=== PATIENT | male | born 1950 | race Caucasian/White ===

== ENCOUNTER 2018-11-11 00:17 | Inpatient (IN) | payer MEDICARE ==
[~2018-11-11] VITALS: Ht 182.9 cm; Wt 94.0 kg
[2018-11-11 00:46] LABS: BASOPHILS ABSOLUTE AUTO 0.08 K/mm3 (0.00-0.23); BASOPHILS PERCENT AUTO 1 % (0-2); EOSINOPHILS ABSOLUTE AUTO 0.11 K/mm3 (0.00-0.68); EOSINOPHILS PERCENT AUTO 1 % (0-6); Hemoglobin 14.7 g/dL (13.5-17.5); IMMATURE GRAN ABSOLUTE AUTO 0.14 K/mm3 (0.00-0.10); IMMATURE GRAN PERCENT AUTO 1 % (0-1); LYMPHOCYTES ABSOLUTE AUTO 4.94 K/mm3 (0.84-5.20); LYMPHOCYTES PERCENT AUTO 44 % (21-46); MONOCYTES ABSOLUTE AUTO 0.69 K/mm3 (0.16-1.47); MONOCYTES PERCENT AUTO 6 % (4-13); Mean Corpuscular Volume 97 fL (80-100); Mean Platelet Volume 10.4 fL (9.1-12.4); NEUTROPHILS ABSOLUTE AUTO 5.27 K/mm3 (1.96-9.15); NEUTROPHILS PERCENT AUTO 47 % (41-73); Platelet Count 368 K/mm3 (150-400); RDW Coefficient Variation 14.6 % (11.7-14.2); RDW Standard Deviation 52.2 fL (35.1-46.3); Red Blood Cell Count 4.74 M/mm3 (4.30-5.90); White Blood Cell Count 11.23 K/mm3 (4.00-11.30)
[2018-11-11 01:05] LABS: Alanine Aminotransfer (ALT/SGP 11 U/L (12-78); Albumin, Blood 3.5 g/dL (3.4-5.0); Albumin/Globulin Ratio 0.9 (0.8-1.8); Alk Phos 91 U/L (50-136); Anion Gap 10 mmol/L (6-16); Aspartate Aminotrans (AST/SGOT 26 U/L (12-37); Bilirubin, Total 0.3 mg/dL (0.1-1.0); Blood Urea Nitrogen 28 mg/dL (8-24); Bun/Creatinine Ratio 19.7 (12.0-20.0); CO2, Blood 25 mmol/L (21-32); Calcium, Blood 8.6 mg/dL (8.5-10.1); Chloride, Blood 107 mmol/L (98-108); Creatinine, Blood 1.42 mg/dL (0.60-1.20); Globulin, Blood 3.7 g/dL (2.2-4.0); Glomerular Filtration Rate 52 (60-); Glucose, Blood 161 mg/dL (70-99); Potassium, Blood 4.3 mmol/L (3.5-5.5); Sodium, Blood 142 mmol/L (136-145); Total Protein, Blood 7.2 g/dL (6.4-8.2); Troponin I <0.015 ng/mL (0.000-0.040)
[2018-11-11 01:20] LABS: Calcium, Ionized (POC) 1.05 mmol/L (1.10-1.46); Chloride (POC) 102 mmol/L (98-108); Creatinine (POC) 1.4 mg/dL (0.8-1.3); Glucose (ISTAT POC) 193 mg/dL (70-99); Hemoglobin (POC) 15.3 g/dL (13.5-17.5); Potassium (POC) 6.4 mmol/L (3.5-5.5); Sodium (POC) 138 mmol/L (135-148); Total CO2 (POC) 25 mmol/L (21-32)
[2018-11-11] MEDS ORDERED: ALBU90OI INH (02:00)
[2018-11-11] MEDS ORDERED: Amiodarone HCl200 MG PO (02:00)
[2018-11-11] MEDS ORDERED: BUDE6HFA INH (02:01)
[2018-11-11] MEDS ORDERED: ASPI81CH PO (02:01)
[2018-11-11] MEDS ORDERED: CARB150 (02:02)
[2018-11-11] MEDS ORDERED: CIPDEXSU BOTHEARS (02:03)
[2018-11-11] MEDS ORDERED: DULO60 PO (02:03)
[2018-11-11] MEDS ORDERED: ESCI10 PO (02:04)
[2018-11-11] MEDS ORDERED: Advair Hfa 230-12 GM (02:04)
[2018-11-11] MEDS ORDERED: FLUC100 PO (02:04)
[2018-11-11] MEDS ORDERED: FURO20 PO (02:30)
[2018-11-11] MEDS ORDERED: ISOMON20 PO (02:31)
[2018-11-11] MEDS ORDERED: Levothyroxine200 MCG (02:32)
[2018-11-11] MEDS ORDERED: METO100ER PO (02:33)
[2018-11-11] MEDS ORDERED: LOSA50 PO (02:33)
[2018-11-11] MEDS ORDERED: PREG100 PO (02:34)
[2018-11-11] MEDS ORDERED: ENTRESTO 24 MG1 EACH PO (02:34)
[2018-11-11] MEDS ORDERED: ROSU10TA PO (02:34)
[2018-11-11] MEDS ORDERED: WARF5 PO (02:35)
[2018-11-11] MEDS ORDERED: TIOT18 INH (02:35)
[2018-11-11] MEDS ORDERED: SPIR25 PO (02:35)
[2018-11-11 04:17] LABS: International Normalized Ratio 2.81; Prothrombin Time Results 27.1 Sec (9.7-11.5)
[2018-11-11 07:00] LABS: Anion Gap 7 mmol/L (6-16); Blood Urea Nitrogen 27 mg/dL (8-24); Bun/Creatinine Ratio 22.5 (12.0-20.0); CO2, Blood 25 mmol/L (21-32); Calcium, Blood 8.1 mg/dL (8.5-10.1); Chloride, Blood 111 mmol/L (98-108); Glomerular Filtration Rate >60 (60-); Glucose, Blood 125 mg/dL (70-99); Potassium, Blood 4.2 mmol/L (3.5-5.5); Sodium, Blood 143 mmol/L (136-145)
--- NOTE | 2018-11-11 07:42 | NUR ---
SHIFT SUMMARY PATIENT ADMITTED EARLIER THIS SHIFT FROM THE ER. PATIENT PLEASENT AND COOPERATIVE UPON ADMIT. PATIENT TRANSFERED OVER FROM [facility] TO THE BED VIA SLIDER SHEET. PATIENT DENIES ANY PAIN AND STATES THAT HE'S FEELING BETTER NOW. FLUIDS RUNNING PER ORDERS, ABX GIVEN PER ORDERS. PATIENT CURRENTLY APPEARS TO BE SLEEPING WELL. REPORT GIVEN TO ONCOMING RN.
--- NOTE | 2018-11-11 07:56 | NUR ---
NURSING PCU DAYSHIFT: Assumed care of pt at approx 0700. A/O, very pleasant, cooperative w/care. Denies any pain/discomfort at rest though does have soreness of b/l hands w/movement which pt states may r/t recent fall at home. Skin is fragile though intact w/no breakdown noted. Tele in place, SB/NSR w/first degree and BBB, no c/o CP/pressure, BP stable, no noted edema, artificial valve auscultated. L/S cta t/o, O2 sat upper 90's on RA, denies dyspnea, occ dry/MIXER WHIPPED TOPPING cough. Abd SNT, BT+, voiding w/o difficulty per pt. PIV x2, NS infusing at 150cc/hr. No s/s of acute distress at this time. Pt denies any current needs or questions regarding plan of care. Call light in reach and pt is able to use w/o difficulty. Awaiting rounding from PMD, cont to monitor for any changes.
[2018-11-11] MEDS ORDERED: Augmentin 875-1 EACH PO (08:31)
[2018-11-11] MEDS ORDERED: Carbidopa-Levo1 EAC4 PO (08:44)
[2018-11-11] MEDS ORDERED: SYNTHROID0.2 MG PO (08:59)
[2018-11-11] MEDS ORDERED: BENZ100A PO (09:13)
[2018-11-11] MEDS ORDERED: LIDOCAINE30 GM TOP (09:17)
[2018-11-11] MEDS ORDERED: FLONASE ALLERG9.9 ML (09:21)
[2018-11-11] MEDS ORDERED: NICO2 PO (09:39)
[2018-11-11] MEDS ORDERED: MEDIPLAST CORN1 EACH TOP (10:07)
[2018-11-11] MEDS ORDERED: NITR.4SL SL (10:15)
[2018-11-11] MEDS ORDERED: SPIRIVA RESPIMAT4 G1 INH (10:20)
--- NOTE | 2018-11-11 12:03 | NUR ---
ECHOCARDIOGRAM COMPLETED
--- NOTE | 2018-11-11 17:35 | NUR ---
NURSING PCU DAYSHIFT SUMMARY: No significant changes noted t/o the shift. VS remained stable, respiratory and cardiac status unchanged. Worked w/P.T. today, tolerated very well and was able to independently ambulate t/o the unit w/o difficulty. Pt denies any current needs at this time. Call light in reach and pt has been able to use w/o difficulty. Cont to monitor until rpt is given to NOC RN.
[2018-11-12 05:15] LABS: BASOPHILS ABSOLUTE AUTO 0.04 K/mm3 (0.00-0.23); BASOPHILS PERCENT AUTO 0 % (0-2); EOSINOPHILS ABSOLUTE AUTO 0.33 K/mm3 (0.00-0.68); EOSINOPHILS PERCENT AUTO 3 % (0-6); Hematocrit 36.4 % (37.0-53.0); Hemoglobin 11.8 g/dL (13.5-17.5); IMMATURE GRAN ABSOLUTE AUTO 0.06 K/mm3 (0.00-0.10); IMMATURE GRAN PERCENT AUTO 1 % (0-1); LYMPHOCYTES PERCENT AUTO 13 % (21-46); MONOCYTES ABSOLUTE AUTO 0.88 K/mm3 (0.16-1.47); MONOCYTES PERCENT AUTO 8 % (4-13); Mean Corpuscular HGB Conc 32.4 g/dL (31.5-36.5); Mean Corpuscular Volume 99 fL (80-100); Mean Platelet Volume 9.8 fL (9.1-12.4); NEUTROPHILS ABSOLUTE AUTO 8.71 K/mm3 (1.96-9.15); NEUTROPHILS PERCENT AUTO 76 % (41-73); Platelet Count 227 K/mm3 (150-400); RDW Coefficient Variation 14.7 % (11.7-14.2); RDW Standard Deviation 53.8 fL (35.1-46.3); Red Blood Cell Count 3.69 M/mm3 (4.30-5.90); White Blood Cell Count 11.52 K/mm3 (4.00-11.30)
[2018-11-12 05:36] LABS: Prothrombin Time Results 49.2 Sec (9.7-11.5)
[2018-11-12 05:39] LABS: Anion Gap 6 mmol/L (6-16); Blood Urea Nitrogen 17 mg/dL (8-24); Bun/Creatinine Ratio 14.8 (12.0-20.0); CO2, Blood 25 mmol/L (21-32); Chloride, Blood 112 mmol/L (98-108); Creatinine, Blood 1.15 mg/dL (0.60-1.20); Glomerular Filtration Rate >60 (60-); Glucose, Blood 91 mg/dL (70-99); Potassium, Blood 4.1 mmol/L (3.5-5.5); Sodium, Blood 143 mmol/L (136-145)
[2018-11-12 06:38] LABS: International Normalized Ratio 5.41
--- NOTE | 2018-11-12 07:15 | NUR ---
SHIFT SUMMARY PATIENT PLEASENT AND COOPERATIVE THROUGHOUT THE NIGHT. PATIENT APPEARED TO SLEEP WELL WITH NO COMPLAINTS OF PAIN OR DISCOMFORT. ABX GIVEN PER ORDERS. VITAL SIGNS CHARTED. PATIENT SATES THAT HE IS HOPING TO GO HOME TODAY. REPORT GIVEN TO ONCOMING RN.
[2018-11-12] MEDS ORDERED: Vibramycin100 MG PO (09:53)
--- NOTE | 2018-11-12 19:28 | NUR ---
PT DISCHARGED PT HAS BEEN EDUCATED ON ALL DISCHARGE MEDS, VSS, PT IN NO PAIN, PT HAS HAD AGREED WITH DC INSTRUCTION, PT HAS HAD ALL IV REMOVED
== END 2018-11-12 11:00 | disposition home or self-care (01) | DRG 872 ==
LOC: ER 00:17 → PCU 03:36
PROVIDERS: Emergency Medicine; Internal Medicine; Physician Assistant; ADMIT Hospitalist
DX: A41.9 Sepsis, unspecified organism (principal); I50.22 Chronic systolic (congestive) heart failure; R65.20 Severe sepsis without septic shock; J44.9 Chronic obstructive pulmonary disease, unspecified; I48.91 Unspecified atrial fibrillation; E03.9 Hypothyroidism, unspecified; T68.XXXA Hypothermia, initial encounter; G20 Parkinson's disease; I11.0 Hypertensive heart disease with heart failure; E78.5 Hyperlipidemia, unspecified; I95.9 Hypotension, unspecified; R55 Syncope and collapse; E86.0 Dehydration; Z95.2 Presence of prosthetic heart valve; Z87.891 Personal history of nicotine dependence; Z79.01 Long term (current) use of anticoagulants; Z79.82 Long term (current) use of aspirin; Z79.51 Long term (current) use of inhaled steroids; Z79.899 Other long term (current) drug therapy
CPT/HCPCS: 36415; 70450; 71045; 74176; 80047; 80048; 80053; 80202; 83605; 84145; 84443; 84484; 85014; 85025; 85610; 87040; 93005; 93010; 93306; 94640; 94760; 96361; 96365; 96367; 96368; 96375; 97116; 97161; 99285-25; J0610; J0692; J0696; J1815; J3370; J7030; J7050; J7120

== ENCOUNTER 2019-03-27 17:16 | Emergency (ER) | payer MEDICARE ==
[~2019-03-27] VITALS: Ht 180.3 cm; Wt 90.7 kg
[~2019-03-27 17:16] MED LIST: ALBU90OI INH; ASPI81CH PO; Advair Hfa 230-12 GM; Amiodarone HCl200 MG PO; Augmentin 875-1 EACH PO; BENZ100A PO; BUDE6HFA INH; CARB150; CIPDEXSU BOTHEARS; Carbidopa-Levo1 EAC4 PO; DULO60 PO; ENTRESTO 24 MG1 EACH PO; ESCI10 PO; FLONASE ALLERG9.9 ML; FLUC100 PO; FURO20 PO; ISOMON20 PO; LIDOCAINE30 GM TOP; LOSA50 PO; Levothyroxine200 MCG; MEDIPLAST CORN1 EACH TOP; METO100ER PO; NICO2 PO; NITR.4SL SL; PREG100 PO; ROSU10TA PO; SPIR25 PO; SPIRIVA RESPIMAT4 G1 INH; SYNTHROID0.2 MG PO; TIOT18 INH; Vibramycin100 MG PO; WARF5 PO
[2019-03-27 17:57] LABS: BASOPHILS ABSOLUTE AUTO 0.07 K/mm3 (0.00-0.23); BASOPHILS PERCENT AUTO 1 % (0-2); EOSINOPHILS ABSOLUTE AUTO 0.28 K/mm3 (0.00-0.68); EOSINOPHILS PERCENT AUTO 3 % (0-6); Hematocrit 43.4 % (37.0-53.0); IMMATURE GRAN ABSOLUTE AUTO 0.04 K/mm3 (0.00-0.10); IMMATURE GRAN PERCENT AUTO 0 % (0-1); LYMPHOCYTES ABSOLUTE AUTO 1.76 K/mm3 (0.84-5.20); LYMPHOCYTES PERCENT AUTO 18 % (21-46); MONOCYTES ABSOLUTE AUTO 0.68 K/mm3 (0.16-1.47); MONOCYTES PERCENT AUTO 7 % (4-13); Mean Corpuscular HGB Conc 32.3 g/dL (31.5-36.5); Mean Corpuscular Volume 96 fL (80-100); Mean Platelet Volume 11.1 fL (9.1-12.4); NEUTROPHILS ABSOLUTE AUTO 7.17 K/mm3 (1.96-9.15); NEUTROPHILS PERCENT AUTO 72 % (41-73); Platelet Count 270 K/mm3 (150-400); RDW Coefficient Variation 14.1 % (11.7-14.2); RDW Standard Deviation 49.7 fL (35.1-46.3); Red Blood Cell Count 4.52 M/mm3 (4.30-5.90)
[2019-03-27 18:13] LABS: International Normalized Ratio 2.63; Prothrombin Time Results 25.5 Sec (9.7-11.5)
[2019-03-27 18:23] LABS: Magnesium, Blood 2.5 mg/dL (1.6-2.4); Troponin I <0.015 ng/mL (0.000-0.040)
[2019-03-27 18:26] LABS: Alanine Aminotransfer (ALT/SGP 13 U/L (12-78); Albumin, Blood 3.6 g/dL (3.4-5.0); Albumin/Globulin Ratio 0.9 (0.8-1.8); Alk Phos 102 U/L (50-136); Anion Gap 8 mmol/L (6-16); Aspartate Aminotrans (AST/SGOT 29 U/L (12-37); Bilirubin, Total 0.3 mg/dL (0.1-1.0); Blood Urea Nitrogen 18 mg/dL (8-24); Bun/Creatinine Ratio 15.1 (12.0-20.0); CO2, Blood 22 mmol/L (21-32); Calcium, Blood 8.7 mg/dL (8.5-10.1); Chloride, Blood 111 mmol/L (98-108); Creatinine, Blood 1.19 mg/dL (0.60-1.20); Globulin, Blood 4.1 g/dL (2.2-4.0); Glomerular Filtration Rate >60 (60-); Glucose, Blood 141 mg/dL (70-99); Potassium, Blood 3.8 mmol/L (3.5-5.5); Sodium, Blood 141 mmol/L (136-145); Total Protein, Blood 7.7 g/dL (6.4-8.2)
[2019-03-27] MEDS ORDERED: Magnesium Citr296 ML PO (19:05)
== END 2019-03-27 19:15 | disposition home or self-care (01) ==
LOC: ER 17:16
PROVIDERS: Emergency Medicine
DX: K59.00 Constipation, unspecified (principal); Z79.899 Other long term (current) drug therapy; Z79.01 Long term (current) use of anticoagulants; I11.0 Hypertensive heart disease with heart failure; I50.9 Heart failure, unspecified; J44.9 Chronic obstructive pulmonary disease, unspecified; F32.9 Major depressive disorder, single episode, unspecified; E78.5 Hyperlipidemia, unspecified; I48.91 Unspecified atrial fibrillation; E03.9 Hypothyroidism, unspecified; Z87.891 Personal history of nicotine dependence
CPT/HCPCS: 36415; 71046; 74018; 80053; 83605; 83690; 83735; 83880; 84145; 84484; 85025; 85610; 93005; 93010; 94640; 99284-25